=== PATIENT | male | born 2000 | race Caucasian/White ===

== ENCOUNTER 2021-11-25 00:25 | Emergency (ER) | payer OTHER ==
[~2021-11-25] VITALS: Ht 175.2 cm; Wt 108.9 kg
[2021-11-25] MEDS ORDERED: LIDOCAINE 1% INJ 20 ML VIAL INJ STA (01:03)
--- NOTE | 2021-11-25 01:08 | ED Head Injury ---
General Chief Complaint: Laceration Stated Complaint: HEAD INJURY Nursing Triage Note: patient verbalized was at work ADM and ran head first into a "buggy" laceration noted medial rt eyebrow. patient states he has a headache. denies loc Source: patient History of Present Illness Date Seen by Provider: Nov 25, 2021 Time Seen by Provider: 00:28 Initial Comments 21 yo male presenting with forehead laceration from work. He hit his head when he ran into a "buggy". He denies losing consciousness, having vision changes, dizziness, nausea, vomiting, blood or fluid draining from ears or nose. He has mild headache about 3 out of 10. He states his last tetanus booster was 2 years ago. he denies chronic medical conditions and does not take any medications on daily basis. 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) Severity: mild Location: other (forehead above right eyebrow) Method of Injury: direct blow Loss of Consciousness: no loss of consciousness Associated Systoms: No Chest Pain, No Cough, No Diaphoresis, No Fever/Chills; Headaches; No Loss of Appetite, No Malaise, No Nausea/Vomiting, No Rash, No Seizure, No Shortness of Air, No Syncope, No Weakness Allergies and Home Medications Allergies Coded Allergies: No Known Drug Allergies (Unverified , 11/25/21) Patient Home Medication List Home Medication List Reviewed: Yes Review of Systems Review of Systems Constitutional: No chills, No dizziness, No fever Eyes: Denies Blindness, Denies Blurred Vision, Denies Photophobia, Denies Vision Changes Ears, Nose, Mouth, Throat: denies ear pain, denies ear discharge, denies nose pain, denies nose discharge, denies epistaxis, denies mouth pain Respiratory: No cough, No short of breath Cardiovascular: No chest pain Gastrointestinal: No nausea, No vomiting Genitourinary: no symptoms reported Musculoskeletal: no symptoms reported Skin: see HPI Psychiatric/Neurological: Headache (3 out of 10 headache) Past Qukqhma-Snokbx-Ceqfvs Hx Patient Social History Tobacco Use?: No Use of E-Cig and/or Vaping dev: No Substance use?: No Alcohol Use?: Yes Alcohol Frequency: Once in a while Immunizations Up To Date Influenza Vaccine Up-to-Date: No; Not Current Physical Exam Vital Signs Vital Signs - First Documented 11/25/21 00:35 Temp 36.2 Pulse 90 Resp 18 B/P (MAP) 148/77 (100) Pulse Ox 97 O2 Delivery Room Air Capillary Refill : Less Than 3 Seconds Height, Weight, BMI Height: '" Weight: lbs. oz. kg; 35.00 BMI Method: General Appearance: WD/WN, no apparent distress HEENT: PERRL/EOMI, normal ENT inspection, TMs normal, pharynx normal; No photophobia; other (Negative coats sign, negative raccoon sign, no CSF otorrhea, no CSF rhinorrhea) Neck: non-tender, full range of motion, supple, normal inspection Cardiovascular: normal peripheral pulses Psychiatric: alert, oriented x 3 [place] Nerves: normal hearing, normal speech, PERRL Coordination/Gait: normal gait Motor/Sensory: no motor deficit, no sensory deficit Skin: normal color, warm/dry Darline Coma Score Best Eye Response: (4) Open Spontaneously Best Verbal Response: (5) Oriented Best Motor Response: (6) Obeys Commands [place] Total: 15 Images 1 - 2.2 cm laceration to right forehead above eyebrow Procedures/Interventions Wound Location: Face (Above the right eyebrow) Wound Length (cm): 2.2 Wound's Depth, Shape: linear, sub Q Wound Explored: clean Anesthesia: 1% Lidocaine Volume Anesthetic (ccs): 4 Suture: Ethlion Suture Size: 5-0 Number of Sutures: 5 Sterile Dressing Applied?: Yes Progress After obtaining verbal consent from the patient the wound was cleaned with chlorhexidine scrub soap and sterile water. 4 mL of 1% plain lidocaine were infiltrated in the wound for anesthetic effect. Wound was further cleaned with additional chlorhexidine scrub soap and sterile water. Using 5-0 Ethilon a total of 5 simple interrupted stitches were placed. Wound edges were well a pproximated. Patient tolerated procedure well without any immediate complication. Counseled on follow-up and return precautions as well as management of wound. Sterile dressing applied. Stitches to be removed in 5 to 7 days and be seen sooner if signs of infection. Progress/Results/Core Measures Results/Orders My Orders Orders - ROCIO ALATORRE MD Suture Set At Bedside (11/25/21 01:03) Wound Dressing-Ed (11/25/21 01:03) Lidocaine 1% Inj 20 Ml (Xylocaine 1% Inj (11/25/21 01:03) Vital Signs/I&O 11/25/21 00:35 Temp 36.2 Pulse 90 Resp 18 B/P (MAP) 148/77 (100) Pulse Ox 97 O2 Delivery Room Air Blood Pressure Mean: 100 Progress Progress Note : Progress Note As patient had no loss of consciousness, change in vision, nausea, vomiting, drainage from his ears or nose and is felt that he had a low risk of intracranial hemorrhage or skull fracture. CT scan was deferred due to this. Wound was cleaned and closed using 5-0 Ethilon. He had 5 simple interrupted stitches placed to approximate the wound edges. Patient tolerated procedure well without any immediate complication. Counseled on wound care and follow-up and return precautions. May return to work tonight Departure Impression Primary Impression: Laceration of forehead without complication Qualified Codes: S01.81XA - Laceration without foreign body of other part of head, initial encounter Additional Impression: Contusion of face Qualified Codes: S00.83XA - Contusion of other part of head, initial encounter Disposition: HOME, SELF-CARE Condition: Stable Departure-Patient Inst. Decision time for Depature: 01:05 Referrals: NO,LOCAL PHYSICIAN (PCP) Primary Care Physician [facility] [place] Patient Instructions: Laceration Repair With Stitches ED, Minor Contusion ED Add. Discharge Instructions: Keep wound clean dry and covered for first 24 hours. Then may remove dressing and wash with soap and water. Cover with bandaid and change it out at least 2 times a day and as needed if the bandaid gets dirty. Apply triple antibiotic or bacitracin to wound when you change the bandaid. Ice 10-15 min every few hours as needed for pain/swelling. Stitches to be removed in 5 to 7 days. See either work comp clinic for this or return to ER. If seeing signs of infection such as redness streaking across forehead, pus draining from wound, fever over 101 F return or be seen in clinic as you may need antibiotics. All discharge instructions reviewed with patient and/or family. Voiced understanding. ROCIO ALATORRE MD Nov 25, 2021 01:08
[2021-11-25 01:16] VITALS: BP 148/77
== END 2021-11-25 01:17 | disposition home or self-care (01) ==
LOC: ER FS 00:31
DX: S01.81XA Laceration without foreign body of other part of head, initial encounter (principal); Z28.310 Unvaccinated for COVID-19; W22.8XXA Striking against or struck by other objects, initial encounter; Y93.01 Activity, walking, marching and hiking; Y92.59 Other trade areas as the place of occurrence of the external cause; Y99.0 Civilian activity done for income or pay
CPT/HCPCS: 12011